=== PATIENT | female | born 1985 | race African-American/Black ===

== ENCOUNTER 2016-11-21 18:59 | Emergency (ER) | payer MEDICAID ==
[~2016-11-21] VITALS: Ht 170.2 cm; Wt 100.0 kg
[2016-11-21 19:45] VITALS: BP 155/93
== END 2016-11-22 | disposition left against medical advice (07) ==
LOC: ER 21:59
DX: R22.0 Localized swelling, mass and lump, head (principal); Z53.21 Procedure and treatment not carried out due to patient leaving prior to being seen by health care provider

== ENCOUNTER 2017-06-07 09:30 | Emergency (ER) | payer MEDICAID ==
[2017-06-07] MEDS ORDERED: ACETAMINOPHEN 325MG TABLET PO ONE (10:45)
[2017-06-07] MEDS ORDERED: ASPIRIN 81MG TABLET PO ONE (10:45)
[2017-06-07 11:03] LABS: CLARITY URINE CLOUDY (CLEAR); COLOR URINE YELLOW (YELLOW); KETONES URINE NEGATIVE (NEGATIVE); LEUKOCYTE ESTERASE URINE NEGATIVE (NEGATIVE); NITRITE URINE NEGATIVE (NEGATIVE); OCCULT BLOOD URINE 3+ (NEGATIVE); PH URINE 5.5 (4.5-8.0); PROTEIN URINE 1+ (NEGATIVE); SPECIFIC GRAVITY URINE 1.027 (1.005-1.030); UROBILINOGEN URINE 0.2 E.U./dL (0.2-1.0)
[2017-06-07 11:05] LABS: BASOPHILS % 0.4 % (0.0-2.0); EOSINOPHILS % 3.5 % (0.0-5.0); HEMATOCRIT. 35.8 % (36.0-48.0); HEMOGLOBIN. 11.3 g/dL (12.0-16.0); LYMPHOCYTES % 31.5 % (20.0-50.0); MEAN CORPUSCULAR HEMOGLOBIN 25.1 pg (28.0-32.0); MEAN CORPUSCULAR VOLUME 79.7 fL (81.0-99.0); MEAN PLATELET VOLUME 8.4 fl (7.4-10.4); MONOCYTES % 7.5 % (2.0-8.0); NEUTROPHILS % 57.1 % (40.0-76.0); PLATELET 270 x1000/uL (130-400); RED CELL DISTRIBUTION WIDTH 13.7 % (11.6-14.6)
[2017-06-07 11:09] LABS: PROTHROMBIN TIME 10.1 sec (9.4-11.6)
[2017-06-07 11:13] LABS: CHLORIDE 105 mEq/L (98-107)
[2017-06-07 11:42] LABS: *AMPHETAMINES SCREEN URINE NEGATIVE (NEGATIVE); *BARBITURATES SCREEN URINE NEGATIVE (NEGATIVE); *BENZODIAZEPINES SCREEN URINE NEGATIVE (NEGATIVE); *COCAINE SCREEN URINE NEGATIVE (NEGATIVE); CANNABINOID URINE SCREEN NEGATIVE (NEGATIVE); METHADONE URINE SCREEN NEGATIVE (NEGATIVE); OPIATES URINE SCREEN NEGATIVE (NEGATIVE); PHENCYCLIDINE URINE SCREEN NEGATIVE (NEGATIVE)
[2017-06-07] MEDS ORDERED: IPRATROPIUM/ALBUTEROL 0.5-3(2.5)MG/3ML NEB HHN ONE (11:45)
[2017-06-07] MEDS ORDERED: LISINOPRIL 5MG TABLET PO ONE (13:15)
[2017-06-07 13:25] VITALS: BP 130/79
== END 2017-06-07 14:03 | disposition home or self-care (01) ==
LOC: ER 10:02
DX: I51.7 Cardiomegaly (principal); I12.9 Hypertensive chronic kidney disease with stage 1 through stage 4 chronic kidney disease, or unspecified chronic kidney disease; N18.9 Chronic kidney disease, unspecified; E86.0 Dehydration; D50.9 Iron deficiency anemia, unspecified; R05 Cough; F41.9 Anxiety disorder, unspecified; F17.200 Nicotine dependence, unspecified, uncomplicated; Z91.14 Patient's other noncompliance with medication regimen
CPT/HCPCS: 36415; 71045; 80053; 80305; 81003; 81025; 83036; 83880; 84484; 85025; 85610; 93005; 94640; 99285; J7620

== ENCOUNTER 2024-12-14 12:55 | Emergency (ER) | payer MEDICAID ==
[~2024-12-14] VITALS: Ht 172.7 cm; Wt 114.0 kg
[2024-12-14 13:06] VITALS: O2SAT 99
[2024-12-14 15:08] LABS: BASOPHILS % 0.8 % (0.0-2.0); EOSINOPHILS % 1.0 % (0.0-5.0); HEMATOCRIT. 27.9 % (36.0-48.0); HEMOGLOBIN. 8.1 g/dL (12.0-16.0); LYMPHOCYTES % 21.1 % (20.0-50.0); MEAN PLATELET VOLUME 8.3 fl (7.4-10.4); MONOCYTES % 5.9 % (2.0-8.0); NEUTROPHILS % 71.2 % (40.0-76.0); PLATELET 434 x1000/uL (130-400); RED BLOOD CELL COUNT 4.06 mill/uL (4.2-5.4); RED CELL DISTRIBUTION WIDTH 20.0 % (11.6-14.6)
[2024-12-14 15:15] LABS: HCG SCREEN NEGATIVE
[2024-12-14 15:19] LABS: ADD RBC MORPHOLOGY YES
[2024-12-14 16:08] VITALS: BP 148/78; PULSE 94; RESP 20; TEMP 37.1; O2SAT 99
[2024-12-14 16:12] LABS: PLATELET ESTIMATE SLIGHTLY INCREASED
== END 2024-12-14 16:10 | disposition home or self-care (01) ==
LOC: ER 12:55
DX: D64.9 Anemia, unspecified (principal); F41.9 Anxiety disorder, unspecified; I10 Essential (primary) hypertension; Z98.890 Other specified postprocedural states; Z86.018 Personal history of other benign neoplasm
CPT/HCPCS: 36415; 84703; 85025; 86850; 86900; 99283